=== PATIENT | male | born 1985 | race American Indian/Alaskan Native ===

== ENCOUNTER 2017-03-02 00:06 | Emergency (ER) | payer OTHER ==
[2017-03-02 00:59] VITALS: BP 143/72
[2017-03-02] MEDS ORDERED: DUONEB *Not for PRN Use IH ONE (01:09)
== END 2017-03-02 02:46 | disposition left against medical advice (07) ==
LOC: ED 00:06
DX: R06.02 Shortness of breath (principal); J45.909 Unspecified asthma, uncomplicated; Z53.21 Procedure and treatment not carried out due to patient leaving prior to being seen by health care provider

== ENCOUNTER 2017-04-05 03:28 | Emergency (ER) | payer OTHER ==
[2017-04-05 03:49] VITALS: BP 138/73
[2017-04-05] MEDS ORDERED: DUONEB *Not for PRN Use IH ONE (03:49)
== END 2017-04-05 04:43 | disposition left against medical advice (07) ==
LOC: ED 03:28
DX: R07.9 Chest pain, unspecified (principal); J45.909 Unspecified asthma, uncomplicated; Z53.21 Procedure and treatment not carried out due to patient leaving prior to being seen by health care provider
CPT/HCPCS: 93005; 93010; 94640